=== PATIENT | female | born 1975 ===

== ENCOUNTER 2020-09-17 07:03 | Day surgery (SDC) | payer OTHER ==
[~2020-09-17] VITALS: Ht 177.8 cm; Wt 93.0 kg
[2020-09-17] MEDS ORDERED: MIDAZOLAM 5 MG/5 ML VIAL ONE (09:35)
[2020-09-17] MEDS ORDERED: fentaNYL citrate 0.05 MG/ML VIAL ONE (09:35)
[2020-09-17] MEDS ORDERED: LIDOCAINE 2% 100 MG/5 ML UJET TP ONE (09:36)
[2020-09-17] MEDS ORDERED: diphenhydrAMINE 50 MG/ML VIAL ONE (10:04)
[2020-09-17] MEDS ORDERED: fentaNYL citrate 0.05 MG/ML VIAL IVP ONE (13:15)
[2020-09-17] MEDS ORDERED: MIDAZOLAM 2 MG/2 ML VIAL IVP ONE (13:15)
== END 2020-09-17 10:28 | disposition home or self-care (01) ==
LOC: MDS 07:03 → MMU 07:09 → MDS 10:28
PROVIDERS: ATTEND Internal Medicine Gastroenterology
DX: R10.814 Left lower quadrant abdominal tenderness (principal); K21.9 Gastro-esophageal reflux disease without esophagitis; Z98.51 Tubal ligation status; F41.9 Anxiety disorder, unspecified; K57.30 Diverticulosis of large intestine without perforation or abscess without bleeding; K64.9 Unspecified hemorrhoids; F17.210 Nicotine dependence, cigarettes, uncomplicated; Z88.5 Allergy status to narcotic agent; Z88.8 Allergy status to other drugs, medicaments and biological substances; Z79.899 Other long term (current) drug therapy; Z98.890 Other specified postprocedural states
CPT/HCPCS: 45378; J1200; J2250; J3010